=== PATIENT | female | born 1970 | race Caucasian/White ===

== ENCOUNTER 2016-10-28 13:28 | Emergency (ER) | payer OTHER ==
[~2016-10-28] VITALS: Ht 165.1 cm; Wt 99.8 kg
[~2016-10-28 13:28] MED LIST: MEDR10TA PO
[2016-10-28 13:46] VITALS: BP 145/74
--- NOTE | 2016-10-28 19:25 | NUR ---
PATIENT LEFT WITHOUT BEING SEEN BY DR. COEL. NO FURTHER CARE PROVIDED FOR PATIENT.
== END 2016-10-28 19:25 | disposition left against medical advice (07) ==
LOC: MED 13:28
DX: N39.0 Urinary tract infection, site not specified (principal); Z53.21 Procedure and treatment not carried out due to patient leaving prior to being seen by health care provider
CPT/HCPCS: 81002; 81025; 99281